=== PATIENT | male | born 2000 | race Two or more races ===

== ENCOUNTER 2020-08-24 09:45 | Emergency (ER) | payer SELFPAY ==
[~2020-08-24] VITALS: Ht 162.6 cm; Wt 66.0 kg
--- NOTE | 2020-08-24 09:55 | NUR ---
PATIENT BIB EMS WITH CHIEF C/O SOB. PER EMS PATIENT C/O SOB X2 WEEKS, TODAY FELT LIKE HE WAS "HAVING AN ASTHMA ATTACK." PATIENT 94% RA, GIVEN ALBUTEROL TREATMENT EN ROUTE O2 SATURATION UP TO 100% RA. PER EMS PATIENT ST ON THE MONITOR, OTHER VSS. PER PATIENT, HE HAD JUST GOT OFF WORK AND WAS ON PHONE WITH GIRLFRIEND AND STARTED EXPERIENCING SOB AND ANXIETY, PATIENT HAS HISTORY OF ASTHMA, DID NOT USE INHALER THIS MORNING.
[2020-08-24] MEDS ORDERED: ALBUTEROL/IPRATROPIUM 2.5MG/0.5MG, 3 ML ONE (09:57)
[2020-08-24] MEDS ORDERED: ALBUTEROL/IPRATROPIUM 2.5MG/0.5MG, 3 ML NEB ONE (10:00)
--- NOTE | 2020-08-24 10:28 | NUR ---
PATIENT TOLERATED BREATHING TREATMENT WELL, STATES "I FEEL ALOT BETTER." VSS, CALL LIGHT WITHIN REACH.
--- NOTE | 2020-08-24 10:46 | NUR ---
PATIENT AMBULATED TO BATHROOM WITH STEADY GAIT.
[2020-08-24 11:04] VITALS: BP 123/87
--- NOTE | 2020-08-24 11:13 | NUR ---
Patient given discharge instructions and prescriptions and they have confirmed that they understand the instructions. Patient stable and ambulatory with steady gait from ED to private vehicle.
== END 2020-08-24 11:14 | disposition home or self-care (01) ==
LOC: ED 11:05
DX: J45.31 Mild persistent asthma with (acute) exacerbation (principal); R00.0 Tachycardia, unspecified; I51.7 Cardiomegaly
CPT/HCPCS: 93005; 94640; 99283; J7512